=== PATIENT | female | born 1970 | race Hispanic/Latino ===

== ENCOUNTER 2017-11-23 12:11 | Observation (INO) | payer OTHER ==
[~2017-11-23] VITALS: Ht 157.5 cm; Wt 135.5 kg
[2017-11-23] MEDS ORDERED: SODIUM CHLORIDE 0.9% 1000ML 1,000 ML IV ONE (12:34)
[2017-11-23 12:37] LABS: BASOPHILS % (AUTO) 0.3 % (0.0-5.0); LYMPHOCYTES % (AUTO) 11.6 % (21.0-51.0); MEAN CORPUSCULAR HEMOGLOBIN 24.3 pg (27.0-33.0); MEAN CORPUSCULAR HGB CONC 31.4 g/dL (32.0-36.0); MEAN CORPUSCULAR VOLUME 77.3 fL (79-99); MONOCYTES % (AUTO) 5.7 % (3.0-13.0); NEUTROPHILS % (AUTO) 80.4 % (40.0-77.0); PLATELET COUNT (AUTO) 477 K/uL (130-400); RED BLOOD CELL COUNT(AUTO) 4.65 MIL/uL (4.00-5.50); RED CELL DISTRIBUTION WIDTH 17.7 % (11.0-15.5); WHITE BLOOD COUNT (AUTO) 12.4 K/uL (4.8-10.8)
[2017-11-23 12:43] LABS: CREATININE 0.6 mg/dL (0.5-1.5); POTASSIUM 3.8 mmol/L (3.5-5.1)
[2017-11-23 12:49] LABS: ALBUMIN 2.6 g/dL (3.5-5.0); BILIRUBIN,TOTAL 0.6 mg/dL (0.2-1.0); TOTAL PROTEIN, SERUM 7.5 g/dL (6.0-8.3)
[2017-11-23 13:30] LABS: BILIRUBIN,URINE NEGATIVE (NEGATIVE); COLOR,URINE YELLOW (YELLOW); GLUCOSE, URINE (UA) NEGATIVE (NEGATIVE); KETONES,URINE NEGATIVE (NEGATIVE); LEUKOCYTE ESTERASE ,URINE LARGE (NEGATIVE); NITRATE,URINE NEGATIVE (NEGATIVE); OCCULT BLOOD,URINE NEGATIVE (NEGATIVE); PH,URINE 7.5 (5.0-8.0); PROTEIN,URINE NEGATIVE (NEGATIVE)
[2017-11-23 13:31] LABS: APPEARANCE,URINE SLIGHTLY CLOUDY (CLEAR)
[2017-11-23 13:47] LABS: BACTERIA,URINE Moderate /HPF (None Seen); RBC,URINE 0-1 /HPF (0-1)
[2017-11-23] MEDS ORDERED: SODIUM CHLORIDE 0.9% 100 ML IV ONE (14:06)
[2017-11-23] MEDS ORDERED: CEFEPIME HCL 1 GM VIAL ONE (14:06)
[2017-11-23] MEDS ORDERED: ZOSYN 3.375GM+NS 50ML 50 ML IV ONE (17:50)
[2017-11-23 20:35] VITALS: BP 126/79
[2017-11-23] MEDS ORDERED: ONDANSETRON HCL 4 MG/2 ML VIAL IVP PRN (21:15)
[2017-11-23] MEDS ORDERED: ACETAMINOPHEN 325 MG TAB PO PRN ×2 (21:15)
[2017-11-23] MEDS ORDERED: MORPHINE SULFATE 2 MG/ML 1ML SYG IVP PRN (21:15)
[2017-11-23] MEDS ORDERED: LACTULOSE 20 GM/30 ML UDCUP PO PRN (21:15)
[2017-11-23] MEDS ORDERED: DEXTROSE 50%-WATER 50 ML DISP.SYRIN IV PRN (22:30)
[2017-11-23] MEDS ORDERED: GLUCAGON 1MG KIT 1 MG ML IM PRN (22:30)
[2017-11-23] MEDS ORDERED: POTASSIUM CHLORIDE 20 MEQ ERTAB PO PRN (22:30)
[2017-11-23] MEDS ORDERED: POTASSIUM CHLORIDE 10% ELIXIR 20 MEQ/15 ML UDCUP PO PRN (22:30)
[2017-11-23] MEDS ORDERED: LIDOCAINE HCL-MPF 1% 2ML VIAL IVP PRN (22:30)
[2017-11-23] MEDS ORDERED: POTASSIUM CHLORIDE 20MEQ/100ML 100 ML IV PRN (22:30)
[2017-11-23] MEDS ORDERED: METF10004 PO (22:58)
[2017-11-23] MEDS ORDERED: LISI-617 PO (22:58)
[2017-11-23] MEDS ORDERED: GLIP2.5T2 PO (22:58)
[2017-11-23] MEDS ORDERED: LOVA40TA2 PO (22:58)
[2017-11-23] MEDS ORDERED: FERR325T22 PO (22:58)
[2017-11-23] MEDS ORDERED: GABA-531 PO (22:58)
[2017-11-23 23:30] VITALS: BP 111/64
[2017-11-24] MEDS ORDERED: SODIUM CHLORIDE 0.9% 500ML 500 ML IV ONE (01:24)
[2017-11-24] MEDS: ZOSYN 3.375GM+NS 50ML 50 ML IV SCH ×3 (01:46→16:53)
[2017-11-24 03:25] VITALS: BP 117/70
[2017-11-24 04:40] LABS: HEMATOCRIT 31.2 % (36-48); MEAN CORPUSCULAR HEMOGLOBIN 25.1 pg (27.0-33.0); MEAN CORPUSCULAR HGB CONC 32.4 g/dL (32.0-36.0); MEAN CORPUSCULAR VOLUME 77.3 fL (79-99); PLATELET COUNT (AUTO) 379 K/uL (130-400); RED BLOOD CELL COUNT(AUTO) 4.04 MIL/uL (4.00-5.50); RED CELL DISTRIBUTION WIDTH 17.7 % (11.0-15.5); WHITE BLOOD COUNT (AUTO) 11.9 K/uL (4.8-10.8)
[2017-11-24 04:50] LABS: CREATININE 0.6 mg/dL (0.5-1.5); POTASSIUM 3.5 mmol/L (3.5-5.1)
[2017-11-24] MEDS: INSULIN HUMULIN R 100 UNIT/ML 3ML SQ SCH ×4 (06:48→21:00)
[2017-11-24 08:00] VITALS: BP 116/76
[2017-11-24] MEDS: PANTOPRAZOLE SODIUM 40 MG TABLET.DR PO SCH (08:51)
[2017-11-24] MEDS ORDERED: KETOROLAC TROMETHAMINE 15MG/ML IV PRN (09:00)
[2017-11-24] MEDS ORDERED: ACETAMINOPHEN-CODEINE 300/30MG TAB PO PRN ×2 (09:00)
[2017-11-24] MEDS: GABAPENTIN 300 MG CAPSULE PO SCH ×2 (09:52→22:40)
[2017-11-24] MEDS: LISINOPRIL 5 MG TABLET PO SCH (09:52)
[2017-11-24] MEDS: GLIPIZIDE XL 2.5MG TAB PO SCH (09:52)
[2017-11-24] MEDS: ENOXAPARIN SODIUM 40 MG/0.4 ML SYRINGE SQ SCH (09:54)
[2017-11-24 12:00] VITALS: BP 111/66
[2017-11-24 16:00] VITALS: BP 101/61
[2017-11-24] MEDS: METFORMIN HCL 500 MG TABLET PO SCH (16:53)
[2017-11-24] MEDS ORDERED: ATORVASTATIN CALCIUM 10 MG TABLET PO SCH (17:00)
[2017-11-24 20:00] VITALS: BP 127/74
[2017-11-24 23:43] VITALS: BP 110/67
[2017-11-25] MEDS: ZOSYN 3.375GM+NS 50ML 50 ML IV SCH ×2 (01:13→09:02)
[2017-11-25 03:34] VITALS: BP 109/69
[2017-11-25 05:47] LABS: HEMATOCRIT 31.1 % (36-48); MEAN CORPUSCULAR HEMOGLOBIN 25.4 pg (27.0-33.0); MEAN CORPUSCULAR HGB CONC 32.4 g/dL (32.0-36.0); MEAN CORPUSCULAR VOLUME 78.6 fL (79-99); PLATELET COUNT (AUTO) 390 K/uL (130-400); RED BLOOD CELL COUNT(AUTO) 3.95 MIL/uL (4.00-5.50); RED CELL DISTRIBUTION WIDTH 18.1 % (11.0-15.5); WHITE BLOOD COUNT (AUTO) 10.7 K/uL (4.8-10.8)
[2017-11-25 06:06] LABS: CREATININE 0.6 mg/dL (0.5-1.5); POTASSIUM 3.7 mmol/L (3.5-5.1)
[2017-11-25] MEDS: INSULIN HUMULIN R 100 UNIT/ML 3ML SQ SCH ×2 (06:45→11:39)
[2017-11-25 08:00] VITALS: BP 111/68
[2017-11-25] MEDS ORDERED: LEVO250T2 PO (08:29)
[2017-11-25] MEDS: GABAPENTIN 300 MG CAPSULE PO SCH (08:44)
[2017-11-25] MEDS: LISINOPRIL 5 MG TABLET PO SCH (08:44)
[2017-11-25] MEDS: GLIPIZIDE XL 2.5MG TAB PO SCH (08:44)
[2017-11-25] MEDS: METFORMIN HCL 500 MG TABLET PO SCH (08:45)
[2017-11-25] MEDS: PANTOPRAZOLE SODIUM 40 MG TABLET.DR PO SCH (08:45)
[2017-11-25] MEDS: ENOXAPARIN SODIUM 40 MG/0.4 ML SYRINGE SQ SCH (08:46)
[2017-11-25] MEDS ORDERED: FERROUS SULFATE 325 MG TABLET.DR PO SCH (09:00)
[2017-11-25 12:00] VITALS: BP 112/71
[2017-11-25 16:00] VITALS: BP 129/73
[2017-11-25 19:00] VITALS: BP 131/92
== END 2017-11-25 20:00 | disposition home or self-care (01) ==
LOC: EDH 12:11 → EDHIP 14:50 → 3CH 20:30
PROVIDERS: ADMIT Family Medicine; ATTEND Family Medicine
DX: N39.0 Urinary tract infection, site not specified (principal); E11.9 Type 2 diabetes mellitus without complications; E66.01 Morbid (severe) obesity due to excess calories; R53.2 Functional quadriplegia; D64.9 Anemia, unspecified; E78.5 Hyperlipidemia, unspecified; I10 Essential (primary) hypertension; K27.9 Peptic ulcer, site unspecified, unspecified as acute or chronic, without hemorrhage or perforation; Z74.01 Bed confinement status; Z68.43 Body mass index [BMI] 50.0-59.9, adult; Z90.49 Acquired absence of other specified parts of digestive tract
CPT/HCPCS: 36415 ×3; 80048 ×2; 80053; 81001; 82948 ×8; 83605; 85025; 85027 ×2; 87040; 87088; 87186; 96365; 96366 ×2; 96372 ×2; 96375; 97039; 97161; 97530; 99285; A4600; G0378 ×53; G8980; G8981; G8982; G8983; J0692; J1650 ×2; J1815 ×2; J1885; J2543 ×6; J7030; J7040

== ENCOUNTER 2018-05-05 18:07 | Emergency (ER) | payer MEDICAID, OTHER ==
[~2018-05-05 18:07] MED LIST: FERR325T22 PO; GABA-531 PO; GLIP2.5T2 PO; LEVO250T2 PO; LISI-617 PO; LOVA40TA2 PO; METF-446 PO
[2018-05-05 18:35] LABS: BASOPHILS % (AUTO) 0.3 % (0.0-5.0); EOSINOPHILS % (AUTO) 2.8 % (0.0-8.0); LYMPHOCYTES % (AUTO) 16.8 % (21.0-51.0); MEAN CORPUSCULAR HEMOGLOBIN 26.4 pg (27.0-33.0); MEAN CORPUSCULAR HGB CONC 32.3 g/dL (32.0-36.0); MEAN CORPUSCULAR VOLUME 81.7 fL (79-99); MONOCYTES % (AUTO) 6.5 % (3.0-13.0); NEUTROPHILS % (AUTO) 73.6 % (40.0-77.0); PLATELET COUNT (AUTO) 471 K/uL (130-400); RED BLOOD CELL COUNT(AUTO) 4.16 MIL/uL (4.00-5.50); RED CELL DISTRIBUTION WIDTH 17.9 % (11.0-15.5); WHITE BLOOD COUNT (AUTO) 11.1 K/uL (4.8-10.8)
[2018-05-05 18:50] LABS: CREATININE 0.5 mg/dL (0.5-1.5); POTASSIUM 3.7 mmol/L (3.5-5.1)
[2018-05-05 18:54] LABS: ALBUMIN 2.6 g/dL (3.5-5.0); BILIRUBIN,TOTAL 0.4 mg/dL (0.2-1.0); TOTAL PROTEIN, SERUM 7.6 g/dL (6.0-8.3)
[2018-05-05] MEDS ORDERED: SODIUM CHLORIDE 0.9% 1000ML 1,000 ML IV ONE (19:09)
[2018-05-05 20:22] LABS: APPEARANCE,URINE Turbid (CLEAR); BILIRUBIN,URINE Negative (NEGATIVE); COLOR,URINE Yellow (YELLOW); GLUCOSE, URINE (UA) Negative (NEGATIVE); KETONES,URINE Trace mg/dL (NEGATIVE); LEUKOCYTE ESTERASE ,URINE Large (NEGATIVE); NITRATE,URINE Positive (NEGATIVE); OCCULT BLOOD,URINE Small (NEGATIVE); PROTEIN,URINE POS 2+ (NEGATIVE)
[2018-05-05 20:24] LABS: HCG,QUAL RESULT NEGATIVE (NEGATIVE)
[2018-05-05 20:32] LABS: BACTERIA,URINE Many /HPF (None Seen); SQUAMOUS EPITHELIAL CELL,UR Few /HPF (0-2); WBC,URINE 51-100 /HPF (0-1)
[2018-05-05] MEDS ORDERED: CEFTRIAXONE SODIUM 1 GM ONE (20:47)
== END 2018-05-05 22:46 | disposition home or self-care (01) ==
LOC: EDH 18:07
DX: N39.0 Urinary tract infection, site not specified (principal); E11.9 Type 2 diabetes mellitus without complications; E78.5 Hyperlipidemia, unspecified; I10 Essential (primary) hypertension; Z90.49 Acquired absence of other specified parts of digestive tract; Z98.890 Other specified postprocedural states; Z88.8 Allergy status to other drugs, medicaments and biological substances
CPT/HCPCS: 36415; 80053; 81001; 81025; 83605; 85025; 87077; 87088; 87186; 96374; 99284; J0696; J7030